=== PATIENT | male | born 1990 | race Caucasian/White ===

== ENCOUNTER 2024-12-04 08:10 | Day surgery (SDC) | payer OTHER ==
[~2024-12-04] VITALS: Ht 188 cm; Wt 90.7 kg
[2024-12-04] VITALS (10 sets, daily range): BP systolic 109–125; BP diastolic 64–89; PULSE 68–78; RESP 14–17; TEMP 97.5–98.1
[2024-12-04] MEDS: 0.9%NACL 1000ML 1,000 ML IV ONE (09:50)
[2024-12-04] MEDS ORDERED: proPOFol 10 MG/ML 20ML VIAL IV ONE (10:40)
== END 2024-12-04 11:41 | disposition home or self-care (01) ==
LOC: ENDO 08:10 → DAH 08:10 → ENDO 11:41
PROVIDERS: ATTEND Internal Medicine
DX: R14.0 Abdominal distension (gaseous) (principal); K29.50 Unspecified chronic gastritis without bleeding; R14.2 Eructation; K21.9 Gastro-esophageal reflux disease without esophagitis; Z79.899 Other long term (current) drug therapy
CPT/HCPCS: 43239; J7030; J2704; A4620; A4215 ×2; A4223; A4222; A4221; A4663; A4606; J3490